=== PATIENT | male | born 1995 | race Caucasian/White ===

== ENCOUNTER 2024-05-26 17:46 | Emergency (ER) | payer SELFPAY ==
--- OUTSIDE RECORDS SUMMARY | 2024-05-26 17:49 | XMS REPORT | Continuity of Care Document ---
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
[2024-05-26] MEDS ORDERED: HYDROCODONE/APAP 7.5/325 MG TAB ONE (18:30)
[2024-05-26] MEDS ORDERED: KETOROLAC 30 MG/ML INJ ONE (18:31)
--- NOTE | 2024-05-26 19:04 | RAD REPORT ---
EXAMINATION: Ankle Left 3 View CLINICAL INDICATION: Male, 29 years old. Pain;Swelling COMPARISON: No prior exam. FINDINGS: No acute fracture. No malalignment/dislocation. No significant focal degenerative change. Other: n/a IMPRESSION: No acute osseous abnormality.
--- NOTE | 2024-05-26 19:24 | EDPHYS ---
Physician Documentation [facility] Name: Nathen Mitchell Age: 29 yrs Sex: Male : 1995 Arrival Date: 05/26/2024 Time: 17:46 Bed DX4 Private MD: ED Physician César Carney HPI: 05/26 19:30 This 29 yrs old Male presents to ER via Wheelchair with complaints of Ankle Injury. sb4 19:31 Patient states that he rolled his ankle earlier today getting out of a vehicle. Is sb4 complaining of pain and swelling to his left ankle and foot. No other injuries. Denies any prior injuries on the ankle. Has full ROM and sensation in his foot and toes.. Historical: - Allergies: 18:21 No Known Allergies; iw - Home Meds: 18:21 None [Active]; iw - PMHx: 18:21 None; iw - PSHx: 18:21 None; iw - Immunization history:: Adult Immunizations not up to date. - Infectious Disease History:: Denies. - Social history:: Smoking status: Patient denies any tobacco usage or history of. ROS: 19:31 Constitutional: Negative for fever, chills, and weight loss, sb4 19:31 MS/extremity: Positive for injury or acute deformity, pain, swelling, tenderness, of the left lateral ankle, 19:31 All other systems are negative, Exam: 19:31 Constitutional: This is a well developed, well nourished patient who is awake, alert, sb4 and in no acute distress. Head/Face: Normocephalic, atraumatic. Eyes: Extra-ocular motions intact. Periorbital areas with no swelling, redness, or edema. Respiratory: No increased work of breathing, no retractions or nasal flaring. Skin: Warm, dry with normal turgor. Normal color with no rashes, no lesions, and no evidence of cellulitis. 19:31 Musculoskeletal/extremity: Joints: the left ankle displays pain at rest, painful range of motion, swelling, tenderness, Vital Signs: 18:20 BP 134 / 70; Pulse 109; Resp 18; Temp 98.6; Pulse Ox 100% on R/A; Weight 90.72 kg; iw Height 5 ft. 9 in. ; Pain 10/10; 18:20 Body Mass Index 29.53 (90.72 kg, 175.26 cm) iw 18:20 Pain Scale: Adult iw MDM: 18:24 Medical Screening Exam initiated sb4 19:33 Data reviewed: vital signs, nurses notes, radiologic studies, and as a result, I will sb4 discharge patient. Counseling: I had a detailed discussion with the patient and/or guardian regarding the historical points, exam findings, and any diagnostic results supporting the discharge/admit diagnosis, radiology results, the need for outpatient follow up, a orthopedic surgeon, to return to the emergency department if symptoms worsen or persist or if there are any questions or concerns that arise at home. 05/26 18:28 Order name: Ankle Left 3 View XRAY; Complete Time: 19:20 sb4 05/26 19:23 Order name: Aircast Ankle Splint; Complete Time: 21:06 sb4 Administered Medications: 18:45 Drug: Hydrocodone-Acetaminophen PO (7.5 mg-325 mg) 1 tabs PO once Route: PO; iw 18:45 Not Given (Patient Refused): [id number] mg IM once iw Disposition Summary: 05/26/24 19:23 Discharge Ordered Notes: Location: Home sb4 Problem: new sb4 Symptoms: have improved sb4 Condition: Stable sb4 Diagnosis - Sprain of other ligament of left ankle sb4 Followup: sb4 - With: Juan Jose Browne MD - When: As needed - Reason: Further diagnostic work-up, Recheck today's complaints, Re-evaluation by your physician Discharge Instructions: - Discharge Summary Sheet sb4 - Ankle Sprain, [id number] sb4 Forms: - Medication Reconciliation Form ha1 - Work release form sb4 - Patient Portal Instructions sb4 - Leadership Thank You Letter sb4 Signatures: Dispatcher [employer] Lori Sethi, RN RN Kathy Carter PACarlos PACarlos sb4
--- NOTE | 2024-05-26 19:24 | ER ---
Nurse's Notes [facility] Name: Nathen Mitchell Age: 29 yrs Sex: Male : 1995 Arrival Date: 05/26/2024 Time: 17:46 Bed DX4 Private MD: Diagnosis: Sprain of other ligament of left ankle Presentation: 05/26 18:20 Chief complaint: Patient states: getting out of a side by side and stepped into a hole iw and twisted my left ankle. Coronavirus screen: At this time, the client does not indicate any symptoms associated with coronavirus-19. Ebola Screen: No symptoms or risks identified at this time. Initial Sepsis Screen: Does the patient meet any 2 criteria? No. Patient's initial sepsis screen is negative. Does the patient have a suspected source of infection? No. Patient's initial sepsis screen is negative. Risk Assessment: Do you want to hurt yourself or someone else? Patient reports no desire to harm self or others. Onset of symptoms was May 26, 2024. 18:20 Method Of Arrival: Wheelchair iw 18:20 Acuity: JASON 4 iw Triage Assessment: 18:21 General: Appears in no apparent distress. Behavior is calm, cooperative. Pain: iw Complains of pain in left lateral ankle and left medial ankle. Historical: - Allergies: 18:21 No Known Allergies; iw - Home Meds: 18:21 None [Active]; iw - PMHx: 18:21 None; iw - PSHx: 18:21 None; iw - Immunization history:: Adult Immunizations not up to date. - Infectious Disease History:: Denies. - Social history:: Smoking status: Patient denies any tobacco usage or history of. Vital Signs: 18:20 BP 134 / 70; Pulse 109; Resp 18; Temp 98.6; Pulse Ox 100% on R/A; Weight 90.72 kg; iw Height 5 ft. 9 in. ; Pain 10/10; 18:20 Body Mass Index 29.53 (90.72 kg, 175.26 cm) iw 18:20 Pain Scale: Adult iw ED Course: 18:13 Patient arrived in ED. al6 18:21 Triage completed. iw 18:21 Arm band placed on. iw 18:24 Kathy Zhu PA-C is PHCP. sb4 18:24 César Carney MD is Attending Physician. sb4 18:59 Ankle Left 3 View XRAY In Process Unspecified. EDMS 19:23 Juan Jose Browne MD is Referral Physician. sb4 21:06 Lori Sotelo, RN is Primary Nurse. iw Administered Medications: 18:45 Drug: Hydrocodone-Acetaminophen PO (7.5 mg-325 mg) 1 tabs PO once Route: PO; iw 18:45 Not Given (Patient Refused): [id number] mg IM once iw Outcome: 19:23 Discharge ordered by . sb4 21:10 Patient left the ED. iw Signatures: Dispatcher [employer] EDMS Lori Sotelo RN RN iw Kathy Zhu PA-C PACarlos sb4 Jaycee Lawson
[2024-05-26 21:15] VITALS: BP 134/70; TEMP 98.6; O2SAT 100
== END 2024-05-26 21:10 | disposition home or self-care (01) ==
LOC: ER 17:46
DX: S93.402A Sprain of unspecified ligament of left ankle, initial encounter (principal)
CPT/HCPCS: 99282